=== PATIENT | female | born 1940 | race Caucasian/White ===

== ENCOUNTER 2023-04-15 18:01 | Emergency (ER) | payer OTHER, SELFPAY ==
[2023-04-15 18:06] VITALS: BP 166/101
[2023-04-15 18:35] VITALS: BP 189/69
--- NOTE | 2023-04-15 19:55 | ED.GENMED ---
History of Present Illness
General
Chief Complaint: Cold/Flu/URI Symptoms
Time Seen by Provider: 04/15/23 19:02
Travel History
Have you had any contact with someone who has COVID-19?: No
Do you have any symptoms of coronavirus? Fever > 100 degrees, chills, cough, shortness of breath, sore throat, loss of taste or smell, muscle aches, or headache?: Yes
Symptoms:: cough
History of Present Illness
History of Present Illness:
82-year-old female with history of hypertension, hyperlipidemia, insulin-dependent diabetes, and asthma presents to the emergency department for evaluation of cough and wheezing over the past week. She was seen earlier in the week by her primary
care physician and started on albuterol nebulizers but feels that she is not improving. She was not given any steroids and notes that she has numerous antibiotic allergies/intolerances. Denies any fevers or chills, denies any chest pain, nausea,
or vomiting. No ill contacts at home
Past History
Past History
ED Past Medical History: COPD, GERD, HTN, Hypercholesterolemia, NIDDM, Hypothyroidism, Other (Bronchitis, pneumonia) and Other (Cataracts, degenerative joint disease)
Social History
Tobacco: Former smoker
Personal: Single
Living: alone
Family History
Family History: Cancer
Review of Systems
Review of Systems
Allergies reviewed?: Yes
All Other Systems: ROS reviewed and negative except as documented in HPI and ROS
Phy Exam
Physical Exam
Physical Exam:
GEN: Well appearing, NAD, WDWN
Eyes: PERRLA, EOMs intact, no scleral icterus
HENT: NCAT, oral mucosa moist, no JVD
Lungs: Mildly tachypneic with no accessory muscle use, coarse expiratory wheezes and prolonged expiratory phase heard throughout all lung garcia
Cardiac: RRR, no M/R/G, no peripheral edema. Radial pulses 2+ bilat
Neuro: AO x 3, no focal deficits to BUE/BLE, normal sensation throughout
MSK: No gross deformity or ecchymosis.
Skin: No rashes, petechiae. Normal color, no pallor or jaundice.
Psych: Calm, cooperative, proper hygiene
Course
Orders/Labs/Results
Orders:
Orders
04/15/23 18:11
Chest [CR Chest - 2 Views ] Urgent
Comment:
Reason For Exam: cough
04/15/23 19:13
Albuterol Sulfate [Ventolin Nebules] 10 mg INH R NOW STA
Ipratropium Nebs [Atrovent Nebules] 1 mg INH R NOW STA
MethylPREDNISolone PF [Solu-Medrol Pf] 60 mg IV NOW STA
04/15/23 20:01
Complete Blood Count/With Diff Urgent
Comprehensive Metabolic Panel Urgent
Abnormal Lab Results
04/15/23
20:01
RBC 4.06 L 10^6/uL
(4.20-5.40)
MCH 32.3 H pg
(27.0-31.0)
Absolute Lymphs (auto) 1.1 L 10^3/uL
(1.2-3.4)
Immature Gran % 0.6 H %
(0-0.5)
Neutrophils % 78.0 H %
(42.2-75.2)
Lymphocytes % 15.0 L %
(20.5-51.1)
Potassium 3.1 L mmol/L
(3.5-5.1)
Chloride 96 L mmol/L
(98-107)
BUN 22 H mg/dl
(7-17)
Glucose 199 H mg/dl
(70-99)
04/15/23 20:01
04/15/23 20:01
Vital Signs
Initial and Last Documented VS:
Initial Vital Signs
Temp Pulse Resp BP Pulse Ox
99.3 F 95 22 166/101 94
04/15/23 18:06 04/15/23 18:06 04/15/23 18:06 04/15/23 18:06 04/15/23 18:06
Last Documented Vital Signs
Temp Pulse Resp BP Pulse Ox
99.3 F 96 16 139/52 93
04/15/23 18:06 04/15/23 18:35 04/15/23 18:35 04/15/23 21:30 04/15/23 18:35
MDM/Problems Addressed
MDM/Problems Addressed:
Patient's work of breathing and mild hypoxia improved after hour-long neb treatment. Patient does have a nebulizer at home thus we will provide her with DuoNeb for use over the next week. Likely viral mediated COPD exacerbation, will start the
patient on a course of steroids. She is encouraged to monitor her glucose closely and adjust her insulin accordingly
*Critical Care Note
Total Time (30-74mins, 75-104mins- exclusive of procedures): Not Applicable
ED Attending Note
-
Portions of this chart may have been created with voice recognition software.� Occasional wrong word or��sound alike� substitutions may have occurred due to the inherent limitations of voice recognition software.
Discharge Plan
Departure
Patient Disposition: Home (Routine Discharge)
Date of Disposition: 04/15/23
Time of Disposition: 21:12
Patient with high blood pressure during this ER visit?: No
Discharge Problem:
Asthma exacerbation
Instructions: Acute Bronchitis, Adult (DC)
Prescriptions:
New
ipratropium-albuterol 0.5 mg-3 mg(2.5 mg base)/3 mL solution for nebulization
3 ml inhalation Q6H 7 Days Qty: 90 0RF
prednisone 20 mg tablet
40 mg PO DAILY 6 Days Qty: 12 0RF
No Action
sertraline 50 MG tablet
50 mg PO DAILY
montelukast 10 MG tablet
10 mg PO DAILY
losartan 100 MG tablet
100 mg PO DAILY
rosuvastatin 20 MG tablet
20 mg PO DAILY
albuterol sulfate 1 PUFF HFA aerosol inhaler
1 puff inhalation R Q4HPRN PRN (Reason: shortness of breath)
fluticasone propionate 1 SPRAY spray,suspension
1 spray intranasal DAILYPRN PRN (Reason: allergies)
amlodipine 2.5 MG tablet
2.5 mg PO DAILY
metformin 500 MG tablet extended release 24 hr
1,000 mg PO DAILY@0800
cetirizine 10 MG tablet
10 mg PO DAILYPRN PRN (Reason: allergies)
levothyroxine 150 MCG tablet
150 mcg PO DAILY
docusate sodium [Colace] 100 MG capsule
100 mg PO BIDPRN PRN (Reason: constipation)
hydrochlorothiazide 25 MG tablet
25 mg PO Q48H
fluticasone propion-salmeterol 1 DISK blister with device
1 puff inhalation R DAILYPRN PRN (Reason: sob)
potassium chloride 10 MEQ tablet,ER particles/crystals
20 meq PO BID
acetaminophen 325 MG tablet
650 mg PO Q4HPRN PRN (Reason: mild pain)
insulin glargine [Lantus Solostar U-100 Insulin] 300 UNITS/3 ML insulin pen
22 units SC HS Qty: 5 0RF
metronidazole 500 MG tablet
500 mg PO Q8 10 Days Qty: 30 0RF
insulin aspart U-100 [Novolog FlexPen U-100 Insulin] 300 UNITS/3 ML insulin pen
7 units SC MEALS Qty: 0 0RF
Patient Comments:
06/12/20-4 units if BS 90-150; 6 units if BS is 151-200; 8 units if BS is 201-258; 10 units if BS is 300.
Referrals:
Graeme Day PA-C [Family Provider] -
Interventions
Interventions:
*Risk Screen - Suicide Last Done: 04/15/23 18:35
*General Assessment Last Done: 04/15/23 18:35
*Neglect/Abuse Screening Last Done: 04/15/23 18:35
*ED COVID-19 Vaccine History Last Done: 04/15/23 18:30
*Nursing Disposition Last Done: 04/15/23 21:36
ED- Pulmonary Assessment Last Done: 04/15/23 18:35
Discharge Date and Time
Discharge Date/Time: 04/15/23 21:36
[2023-04-15] MEDS: SOLU-MEDROL PF 60 MG IV (20:04)
[2023-04-15] MEDS: ATROVENT NEBULES 1 MG INH (20:04)
[2023-04-15] MEDS: VENTOLIN NEBULES 10 MG INH (20:05)
[2023-04-15 20:13] VITALS: BP 158/71
[2023-04-15 20:28] LABS: % Basophils 0.4 % (0-2); % Eosinophils 1.1 % (0-6); % Immature Granulocytes 0.6 % (0-0.5); % Monocytes 4.9 % (1.7-9.3); Absolute Eosinophils 0.1 10^3/uL (0-0.7); Absolute Lymphocytes 1.1 10^3/uL (1.2-3.4); Absolute Monocytes 0.4 10^3/uL (0.1-0.6); Absolute Neutrophils 5.5 10^3/uL (1.4-6.5); Hematocrit 38.3 % (37.0-47.0); Hemoglobin 13.1 g/dL (12.0-16.0); Mean Corp Hgb Conc. 34.2 g/dL (33.0-37.0); Mean Corpuscular Hgb 32.3 pg (27.0-31.0); Mean Corpuscular Volume 94.3 fL (81.0-99.0); Mean Platelet Volume 9.5 fL (7.4-10.4); Nucleated Red Blood Cells % 0 %; Platelet Count 153 10^3/uL (130-400); Red Blood Cell Count 4.06 10^6/uL (4.20-5.40); Red Cell Dist. Width 13.2 % (11.5-14.5); White Blood Cell Count 7.1 10^3/uL (4.8-10.8)
[2023-04-15 20:42] LABS: ALT (SGPT) 14 U/L (0-35); AST (SGOT) 30 U/L (14-36); Albumin 3.6 g/dl (3.5-5.0); Alkaline Phosphatase 111 U/L (38-126); Blood Urea Nitrogen 22 mg/dl (7-17); Calcium 9.4 mg/dl (8.4-10.2); Carbon Dioxide 30 mmol/L (22-30); Chloride 96 mmol/L (98-107); Glucose 199 mg/dl (70-99); Potassium 3.1 mmol/L (3.5-5.1); Sodium 137 mmol/L (135-145); Total Bilirubin 0.9 mg/dl (0.2-1.3); Total Protein 6.3 g/dl (6.3-8.2); eGFR 56.95
[2023-04-15 21:30] VITALS: BP 139/52
== END 2023-04-15 21:36 | disposition home or self-care (01) ==
LOC: EMR 18:01
PROVIDERS: Physician Assistant; EMERGENCY PHYSICIAN Emergency Medicine; FAMILY PHYSICIAN Physician Assistant Medical
DX: J45.901 Unspecified asthma with (acute) exacerbation (principal); Z87.891 Personal history of nicotine dependence
CPT/HCPCS: 99284; 96374; 94640; 71046; 80053; 85025

== ENCOUNTER → 2023-06-16 13:47 | Outpatient (REF) | payer OTHER, SELFPAY | LOC: HWRAD 13:47 | PROVIDERS: ATTENDING PHYSICIAN Physician Assistant Medical | DX: E11.22 Type 2 diabetes mellitus with diabetic chronic kidney disease (principal); Z87.891 Personal history of nicotine dependence; Z12.31 Encounter for screening mammogram for malignant neoplasm of breast; Z78.0 Asymptomatic menopausal state | CPT/HCPCS: 77063; 77067; 77080 ==

== ENCOUNTER → 2023-09-21 13:17 | Outpatient (REF) | payer OTHER, SELFPAY | LOC: HWRAD 13:17 | PROVIDERS: ATTENDING PHYSICIAN Podiatrist Foot & Ankle Surgery; FAMILY PHYSICIAN Physician Assistant Medical | DX: S90.31XA Contusion of right foot, initial encounter (principal) | CPT/HCPCS: 73630 ==

== ENCOUNTER → 2023-10-31 15:07 | Outpatient (REF) | payer OTHER, SELFPAY | LOC: HWRAD 15:07 | PROVIDERS: ATTENDING PHYSICIAN Podiatrist Foot & Ankle Surgery; FAMILY PHYSICIAN Physician Assistant Medical | DX: S90.31XD Contusion of right foot, subsequent encounter (principal) | CPT/HCPCS: 73630 ==

== ENCOUNTER → 2024-04-17 12:43 | Outpatient (REF) | payer OTHER, SELFPAY | LOC: HWRCS 12:43 | PROVIDERS: ATTENDING PHYSICIAN Nuclear Medicine Nuclear Cardiology; FAMILY PHYSICIAN Physician Assistant Medical | DX: I10 Essential (primary) hypertension (principal); I38 Endocarditis, valve unspecified | CPT/HCPCS: 93306 ==

== ENCOUNTER → 2024-06-13 15:24 | Outpatient (REF) | payer OTHER, SELFPAY | LOC: HWRAD 15:24 | PROVIDERS: ATTENDING PHYSICIAN Physician Assistant Medical | DX: M54.50 Low back pain, unspecified (principal) | CPT/HCPCS: 72110 ==

== ENCOUNTER → 2024-06-28 12:53 | Outpatient (REF) | payer OTHER, SELFPAY | LOC: HWWDC 12:53 | PROVIDERS: ATTENDING PHYSICIAN Physician Assistant Medical | DX: Z12.31 Encounter for screening mammogram for malignant neoplasm of breast (principal) | CPT/HCPCS: 77063; 77067 ==